=== PATIENT | male | born 1935 | race Caucasian/White ===

== ENCOUNTER 2022-07-18 15:56 | Inpatient (IN) | payer MEDICARE, BC ==
[2022-07-18] MEDS ORDERED: EPINEPHrine 1 MG/10 ML Abboject SYRINGE ONE (16:16)
[2022-07-18 16:25] LABS: Hemoglobin 13.9 g/dL (14.0-18.0); Mean Corpuscular HGB CONC 30.5 g/dL (32.0-36.0); Mean Corpuscular Hemoglobin 29.4 pg (27.0-31.0); Mean Corpuscular Volume 96.5 fl (78.0-98.0); Mean Platelet Volume 11.1 fL (7.4-10.4); Platelet Count 76 10x3/uL (130-400); RBC Distribution Width 18.1 % (11.5-14.5); Red Blood Cell (RBC) Count 4.73 mill/uL (4.70-6.10)
[2022-07-18 16:35] LABS: INR-International Normal Ratio 4.5; Prothrombin Time 45.2 sec (12.0-14.7)
[2022-07-18 16:41] LABS: ALT (SGPT) 15 U/L (8-55); AST (SGOT) 26 U/L (5-34); Albumin 3.1 g/dL (3.4-4.8); Alkaline Phosphatase 146 U/L (40-110); Anion Gap 15 mmol/L (10-20); BUN (Urea Nitrogen) 58 mg/dL (8.4-25.7); Bilirubin, Total 0.6 mg/dL (0.2-1.2); Calc. Creatinine Clearance 0 mL/min (70-130); Calcium 7.3 mg/dL (7.8-10.44); Carbon Dioxide 22 mmol/L (23-31); Chloride 101 mmol/L (98-107); Estimated GFR 16; Globulin 2.9 g/dL (2.4-3.5); Glucose 178 mg/dL (83-110); Potassium 5.6 mmol/L (3.5-5.1); Sodium 132 mmol/L (136-145)
[2022-07-18] MEDS ORDERED: NOREPINEPHRINE 8 MG/250 ML-D5W 250 ML ONE (16:49)
[2022-07-18 16:55] LABS: Anisocytosis SLIGHT = 6-15 cells (100X) (0-5/hpf); Band 12 % (5-11); Eosinophils 2 % (0-10); Large Platelets SLIGHT; Lymphocytes 4 % (21-51); MDiff Complete? YES; Monocytes 5 % (0-10); Neutrophil 77 % (42-75); Ovalocytes SLIGHT = 2-5 cells (100X) (0-1/hpf); Platelet Morphology Comment Appears Decreased
[2022-07-18] MEDS ORDERED: Vancomycin 1 GM/200 ML (FROZEN) BAG ONE (17:11)
[2022-07-18] MEDS ORDERED: Cefepime 2 GM VIAL ONE (17:11)
[2022-07-18] MEDS ORDERED: Calcium Chloride 1 GM/10 ML Abboject SYRINGE ONE ×3 (17:24→17:28)
[2022-07-18 17:25] LABS: Bacteria/HPF 2+ HPF (None Seen); Bilirubin Negative (Negative); Blood, Urine 1+ (Negative); Clarity Turbid (Clear); Glucose, Urine (Dipstick) Normal (Negative); Ketone, Urine Negative (Negative); Leukocyte 500 Leu/uL (Negative); Nitrite 2+ (Negative); Protein, Urine (Dipstick) 50 mg/dL (Neg-Trace); Specific Gravity, Urine 1.014 (1.002-1.036); Squamous Epithelial None Seen HPF (0-3); Urobilinogen Normal mg/dL (Less than 2); WBC/HPF Greater than 50 HPF (0-3); pH, Urine 5.5 (5.0-9.0)
[2022-07-18 17:26] LABS: Actual Bicarbonate (HCO3a) 23.6 mEq/L (22-28); Analyzer IN Cardio ER; Base Excess (BEa) -3.9 mEq/L (-2.0 to +3.0); Calcium, Ionized (arterial) 1.01 mmol/L (1.12-1.30); Carboxyhemoglobin (COHb) 0.7 gm% (0.0-3.0); Hemoglobin (Hb) 13.6 g/dL (14.0-18.0); O2 Tension (PaO2), arterial 78.5 mmHg (> 60.0); Potassium - ABG Lab 4.64 mmol/L (3.70-5.30); pH, Arterial 7.27 (7.35-7.45)
[2022-07-18 17:29] LABS: Puncture Site LRA
[2022-07-18] MEDS ORDERED: Naloxone HCl 2 mg/2 ml Syringe ONE (18:07)
[2022-07-18 19:07] LABS: SARS-CoV-2 NAA Rapid Test Not Detected (NotDetected)
[2022-07-18 19:13] LABS: Lactic Acid 1.7 mmol/L (0.5-2.2)
[2022-07-18] MEDS ORDERED: Ondansetron PF 4 MG/2 ML Vial IVP PRN (19:54)
[2022-07-18 20:14] VITALS: BMI 27.1
[2022-07-18 20:43] LABS: Anion Gap 12 mmol/L (10-20); BUN (Urea Nitrogen) 56 mg/dL (8.4-25.7); Calc. Creatinine Clearance 27 mL/min (70-130); Calcium 7.6 mg/dL (7.8-10.44); Carbon Dioxide 24 mmol/L (23-31); Chloride 102 mmol/L (98-107); Estimated GFR 18; Glucose 156 mg/dL (83-110); Potassium 4.8 mmol/L (3.5-5.1); Sodium 133 mmol/L (136-145)
[2022-07-18] MEDS: Senokot S 8.6-50 MG TAB PO SCH (21:32)
[2022-07-18] MEDS: Cefepime 1 GM in Sodium Chloride 0.9% 100 ML IVPB SCH (21:41)
[2022-07-18] MEDS ORDERED: Vancomycin 1 GM in Premix Bag 1 BAG IVPB SCH (22:00)
[2022-07-18] MEDS ORDERED: Vancomycin Dose by Levels Sliding Scale (Wt > 99) FS SCH (22:00)
[2022-07-19] MEDS ORDERED: Pramipexole Di-HCl 1 MG TAB PO SCH (01:00)
[2022-07-19] MEDS: Acetaminophen/Codeine 30-300mg Tablet PO PRN (02:00)
[2022-07-19 03:37] LABS: INR-International Normal Ratio 5.3; Prothrombin Time 50.8 sec (12.0-14.7)
[2022-07-19] MEDS: NOREPINEPHRINE 8 MG/250 ML-D5W 250 ML IVPB SCH ×2 (03:44→17:22)
[2022-07-19 03:47] LABS: Anion Gap 13 mmol/L (10-20); BUN (Urea Nitrogen) 57 mg/dL (8.4-25.7); Calc. Creatinine Clearance 28 mL/min (70-130); Calcium 7.7 mg/dL (7.8-10.44); Carbon Dioxide 23 mmol/L (23-31); Chloride 101 mmol/L (98-107); Estimated GFR 19; Glucose 93 mg/dL (83-110); Potassium 5.4 mmol/L (3.5-5.1); Sodium 132 mmol/L (136-145)
[2022-07-19 03:52] LABS: Band 16 % (5-11); Hemoglobin 14.2 g/dL (14.0-18.0); Lymphocytes 4 % (21-51); MDiff Complete? YES; Mean Corpuscular HGB CONC 30.1 g/dL (32.0-36.0); Mean Corpuscular Volume 96.3 fl (78.0-98.0); Neutrophil 80 % (42-75); Platelet Count 99 10x3/uL (130-400); Platelet Morphology Comment Appears Decreased; RBC Distribution Width 18.2 % (11.5-14.5); RBC Morphology Normal; White Blood Cell (WBC) Count 21.2 10x3/uL (4.8-10.8)
[2022-07-19] MEDS: Levothyroxine Sodium 50 MCG TAB PO SCH (05:34)
[2022-07-19] MEDS: Mometasone/Formoterol 200/5 60 PUFF INH SCH ×3 (07:23→18:50)
[2022-07-19] MEDS ORDERED: Lactated Ringer's 500 ML IV SCH (09:00)
[2022-07-19] MEDS ORDERED: Hydrocortisone Sod Succ/PF 100 mg/2 ml Vial IVP SCH (09:00)
[2022-07-19] MEDS ORDERED: Albumin 25% 25 GM/100 ML BOT IVPB SCH (09:00)
[2022-07-19 09:11] LABS: Actual Bicarbonate (HCO3v) 27 mEq/L (22-28); Base Excess -1.1 mEq/L (-2.0 to +3.0); Calcium, Ionized (venous) 1.07 mmol/L (1.16-1.32); Chloride (VBG) 101 mmol/L (98-106); Hemoglobin (Hb) 15.2 g/dL (12.6-17.4); Sodium 132.8 mmol/L (133-146); pH (venous) 7.29 (7.32-7.43)
[2022-07-19] MEDS: Pantoprazole 40 MG VIAL IVP SCH (09:30)
[2022-07-19] MEDS ORDERED: Calcium Gluc 4.6 MEQ/10 ML (100 MG/ML) SLOW IVP SCH (09:34)
[2022-07-19] MEDS ORDERED: Calcium Chloride 1 GM/10 ML Abboject SYRINGE ONE (09:40)
[2022-07-19] MEDS ORDERED: Insulin Regular 300 UNITS/3 ML VIAL ONE (09:40)
[2022-07-19] MEDS ORDERED: Insulin Regular 300 UNITS/3 ML VIAL IVP SCH (10:00)
[2022-07-19] MEDS ORDERED: Dextrose 50% Abboject 50 ML SYRINGE SLOW IVP SCH (10:15)
[2022-07-19] MEDS: Senokot S 8.6-50 MG TAB PO SCH ×2 (10:34→21:35)
[2022-07-19] MEDS: Rosuvastatin 5 MG TAB PO SCH (10:34)
[2022-07-19] MEDS: Loratadine 10 MG TAB PO SCH (10:34)
[2022-07-19] MEDS: Polyethylene Glycol 3350 17 GM Packet PO SCH (10:34)
[2022-07-19] MEDS: Hydrocortisone Sod Succ/PF 100 mg/2 ml Vial IVP SCH ×3 (11:44→22:57)
[2022-07-19] MEDS: Vasopressin 20 UNIT, Admixture Fee 1 EACH in Sodium Chloride 0.9% 50 ML IV SCH ×2 (11:45→17:32)
[2022-07-19 12:32] LABS: Anion Gap 13 mmol/L (10-20); BUN (Urea Nitrogen) 57 mg/dL (8.4-25.7); Calc. Creatinine Clearance 28 mL/min (70-130); Calcium 8.1 mg/dL (7.8-10.44); Carbon Dioxide 23 mmol/L (23-31); Chloride 102 mmol/L (98-107); Estimated GFR 18; Glucose 79 mg/dL (83-110); Potassium 5.4 mmol/L (3.5-5.1); Sodium 133 mmol/L (136-145)
[2022-07-19 14:30] LABS: Anion Gap 13 mmol/L (10-20); BUN (Urea Nitrogen) 53 mg/dL (8.4-25.7); Calc. Creatinine Clearance 28 mL/min (70-130); Carbon Dioxide 24 mmol/L (23-31); Chloride 101 mmol/L (98-107); Estimated GFR 19; Glucose 89 mg/dL (83-110); Sodium 132 mmol/L (136-145)
[2022-07-19 14:35] LABS: Actual Bicarbonate (HCO3v) 26 mEq/L (22-28); Base Excess -1.8 mEq/L (-2.0 to +3.0); Calcium, Ionized (venous) 1.12 mmol/L (1.16-1.32); Chloride (VBG) 101 mmol/L (98-106); Hemoglobin (Hb) 14.9 g/dL (12.6-17.4); Potassium (VBG) 5.85 mmol/L (3.70-5.30); Sodium 132.1 mmol/L (133-146)
[2022-07-19] MEDS: Cefepime 1 GM in Sodium Chloride 0.9% 100 ML IVPB SCH (16:45)
[2022-07-19] MEDS ORDERED: LOKELMA 10 GM PACKET PO SCH (17:45)
[2022-07-19 21:28] LABS: Vancomycin, Random 12.7 ug/mL (See Comment)
[2022-07-19] MEDS: Pramipexole Di-HCl 1 MG TAB PO SCH (21:35)
[2022-07-19] MEDS: LOKELMA 10 GM PACKET PO SCH (21:36)
[2022-07-19] MEDS ORDERED: Vancomycin 1 GM in Premix Bag 1 BAG IVPB SCH (22:00)
[2022-07-20] MEDS: Vasopressin 20 UNIT, Admixture Fee 1 EACH in Sodium Chloride 0.9% 50 ML IV SCH (00:37)
[2022-07-20 05:09] LABS: INR-International Normal Ratio 5.1; Prothrombin Time 49.5 sec (12.0-14.7)
[2022-07-20 05:36] LABS: Anion Gap 16 mmol/L (10-20); BUN (Urea Nitrogen) 56 mg/dL (8.4-25.7); Calc. Creatinine Clearance 29 mL/min (70-130); Carbon Dioxide 22 mmol/L (23-31); Chloride 99 mmol/L (98-107); Potassium 5.7 mmol/L (3.5-5.1); Sodium 131 mmol/L (136-145)
[2022-07-20 05:37] LABS: Calcium 8.2 mg/dL (7.8-10.44); Estimated GFR 20; Glucose 186 mg/dL (83-110)
[2022-07-20] MEDS: Levothyroxine Sodium 50 MCG TAB PO SCH (05:40)
[2022-07-20] MEDS: Hydrocortisone Sod Succ/PF 100 mg/2 ml Vial IVP SCH ×2 (05:40→19:32)
[2022-07-20 06:52] LABS: Anisocytosis SLIGHT = 6-15 cells (100X) (0-5/hpf); Band 14 % (5-11); Hemoglobin 13.3 g/dL (14.0-18.0); Hypochromia SLIGHT = 6-15 cells (100X) (0-5/hpf); MDiff Complete? YES; Mean Corpuscular HGB CONC 30.8 g/dL (32.0-36.0); Mean Corpuscular Hemoglobin 29.5 pg (27.0-31.0); Mean Platelet Volume 11.2 fL (7.4-10.4); Monocytes 3 % (0-10); Neutrophil 83 % (42-75); Platelet Count 89 10x3/uL (130-400); Platelet Morphology Comment Appears Decreased; Polychromasia SLIGHT = 2-3 cells (100X) (0-2/hpf); RBC Distribution Width 18.1 % (11.5-14.5); Red Blood Cell (RBC) Count 4.51 mill/uL (4.70-6.10); White Blood Cell (WBC) Count 23.5 10x3/uL (4.8-10.8)
[2022-07-20] MEDS: Mometasone/Formoterol 200/5 60 PUFF INH SCH ×2 (08:05→18:32)
[2022-07-20] MEDS: Loratadine 10 MG TAB PO SCH (09:06)
[2022-07-20] MEDS: Polyethylene Glycol 3350 17 GM Packet PO SCH (09:06)
[2022-07-20] MEDS: Rosuvastatin 5 MG TAB PO SCH (09:06)
[2022-07-20] MEDS: Pantoprazole 40 MG VIAL IVP SCH (09:07)
[2022-07-20] MEDS: Senokot S 8.6-50 MG TAB PO SCH ×2 (09:07→20:13)
[2022-07-20] MEDS: LOKELMA 10 GM PACKET PO SCH (09:07)
[2022-07-20] MEDS ORDERED: Sodium Chloride 0.9% 500 ML IV SCH (09:15)
[2022-07-20] MEDS ORDERED: Hydrocortisone Sod Succ/PF 100 mg/2 ml Vial IVP SCH (09:15)
[2022-07-20] MEDS: Bisacodyl 10 MG SUPP PR PRN ×2 (15:54→22:06)
[2022-07-20] MEDS: Cefepime 1 GM in Sodium Chloride 0.9% 100 ML IVPB SCH (16:21)
[2022-07-20 18:28] LABS: Anion Gap 13 mmol/L (10-20); BUN (Urea Nitrogen) 59 mg/dL (8.4-25.7); Calc. Creatinine Clearance 34 mL/min (70-130); Calcium 7.9 mg/dL (7.8-10.44); Carbon Dioxide 25 mmol/L (23-31); Chloride 101 mmol/L (98-107); Estimated GFR 24; Glucose 127 mg/dL (83-110); Potassium 4.6 mmol/L (3.5-5.1); Sodium 134 mmol/L (136-145)
[2022-07-20] MEDS: Pramipexole Di-HCl 1 MG TAB PO SCH (20:12)
[2022-07-21] MEDS: Hydrocortisone Sod Succ/PF 100 mg/2 ml Vial IVP SCH (03:36)
[2022-07-21] MEDS: Levothyroxine Sodium 50 MCG TAB PO SCH (05:18)
[2022-07-21 05:29] LABS: INR-International Normal Ratio 4.7; Prothrombin Time 46.7 sec (12.0-14.7)
[2022-07-21 05:40] LABS: Band 34 % (5-11); Hemoglobin 12.9 g/dL (14.0-18.0); Hypochromia SLIGHT = 6-15 cells (100X) (0-5/hpf); Lymphocytes 3 % (21-51); MDiff Complete? YES; Mean Corpuscular HGB CONC 30.1 g/dL (32.0-36.0); Mean Corpuscular Hemoglobin 28.8 pg (27.0-31.0); Mean Corpuscular Volume 95.7 fl (78.0-98.0); Mean Platelet Volume 11.6 fL (7.4-10.4); Monocytes 3 % (0-10); Neutrophil 60 % (42-75); Platelet Count 87 10x3/uL (130-400); Platelet Morphology Comment Appears Decreased; RBC Distribution Width 18.4 % (11.5-14.5); Red Blood Cell (RBC) Count 4.47 mill/uL (4.70-6.10); White Blood Cell (WBC) Count 23.6 10x3/uL (4.8-10.8)
[2022-07-21 05:43] LABS: Anion Gap 15 mmol/L (10-20); BUN (Urea Nitrogen) 62 mg/dL (8.4-25.7); Calc. Creatinine Clearance 36 mL/min (70-130); Calcium 8.2 mg/dL (7.8-10.44); Carbon Dioxide 23 mmol/L (23-31); Chloride 102 mmol/L (98-107); Estimated GFR 25; Glucose 105 mg/dL (83-110); Potassium 4.5 mmol/L (3.5-5.1); Sodium 135 mmol/L (136-145)
[2022-07-21] MEDS: Mometasone/Formoterol 200/5 60 PUFF INH SCH ×2 (07:22→19:13)
[2022-07-21] MEDS: Cefepime 1 GM in Sodium Chloride 0.9% 100 ML IVPB SCH ×2 (08:59→20:47)
[2022-07-21] MEDS: Loratadine 10 MG TAB PO SCH (09:00)
[2022-07-21] MEDS: Rosuvastatin 5 MG TAB PO SCH (09:00)
[2022-07-21] MEDS ORDERED: FLU VACC QS2022-23(65YR UP)/PF 240 MCG/0.7 ML SYRINGE IM ONE (09:00)
[2022-07-21] MEDS: Polyethylene Glycol 3350 17 GM Packet PO SCH (09:00)
[2022-07-21] MEDS: Senokot S 8.6-50 MG TAB PO SCH ×2 (09:00→20:46)
[2022-07-21] MEDS: traZODone HCl 50 MG TAB PO PRN (20:46)
[2022-07-21] MEDS: Pramipexole Di-HCl 1 MG TAB PO SCH (20:46)
[2022-07-22] MEDS: Levothyroxine Sodium 50 MCG TAB PO SCH (06:22)
[2022-07-22] MEDS: Senokot S 8.6-50 MG TAB PO SCH ×2 (07:51→19:56)
[2022-07-22] MEDS: Polyethylene Glycol 3350 17 GM Packet PO SCH (07:51)
[2022-07-22] MEDS: predniSONE 20 MG TAB PO SCH (07:52)
[2022-07-22] MEDS: Loratadine 10 MG TAB PO SCH (07:52)
[2022-07-22 08:00] LABS: #Eosinphils 0.3 thou/uL (0.0-0.7); #Lymphocytes 1.6 thou/uL (1.20-3.40); #Monocytes 0.8 thou/uL (0.11-0.59); #Neutrophils 14.6 thou/uL (1.40-6.50); %Basophils 0.2 % (0.0-1.0); %Eosinophils 1.9 % (0.0-10.0); %Monocytes 4.4 % (0.0-10.0); %Neutrophils 84.5 % (42.0-75.0); Hemoglobin 13.1 g/dL (14.0-18.0); Mean Corpuscular HGB CONC 29.5 g/dL (32.0-36.0); Mean Corpuscular Hemoglobin 28.5 pg (27.0-31.0); Mean Corpuscular Volume 96.6 fl (78.0-98.0); Mean Platelet Volume 11.8 fL (7.4-10.4); Platelet Count 88 10x3/uL (130-400); RBC Distribution Width 18.6 % (11.5-14.5); Red Blood Cell (RBC) Count 4.58 mill/uL (4.70-6.10); White Blood Cell (WBC) Count 17.3 10x3/uL (4.8-10.8)
[2022-07-22 08:19] LABS: ALT (SGPT) 19 U/L (8-55); AST (SGOT) 30 U/L (5-34); Alkaline Phosphatase 113 U/L (40-110); Anion Gap 11 mmol/L (10-20); BUN (Urea Nitrogen) 53 mg/dL (8.4-25.7); Bilirubin, Total 0.7 mg/dL (0.2-1.2); Calc. Creatinine Clearance 44 mL/min (70-130); Calcium 8.2 mg/dL (7.8-10.44); Carbon Dioxide 24 mmol/L (23-31); Chloride 106 mmol/L (98-107); Estimated GFR 32; Globulin 2.7 g/dL (2.4-3.5); Glucose 67 mg/dL (83-110); Potassium 4.3 mmol/L (3.5-5.1); Protein, Total 5.7 g/dL (5.8-8.1); Sodium 137 mmol/L (136-145)
[2022-07-22] MEDS: Mometasone/Formoterol 200/5 60 PUFF INH SCH ×2 (08:39→19:10)
[2022-07-22] MEDS: Cefepime 1 GM in Sodium Chloride 0.9% 100 ML IVPB SCH (08:40)
[2022-07-22] MEDS: Rosuvastatin 5 MG TAB PO SCH (08:40)
[2022-07-22 09:19] LABS: Burr Cells SLIGHT = 2-5 cells (100X) (0-1/hpf); MDiff Complete? YES; Platelet Morphology Comment Appears Decreased
[2022-07-22 09:34] LABS: INR-International Normal Ratio 3.5; Prothrombin Time 36.3 sec (12.0-14.7)
[2022-07-22] MEDS: Acetaminophen/Codeine 30-300mg Tablet PO PRN (12:47)
[2022-07-22] MEDS: Pramipexole Di-HCl 1 MG TAB PO SCH (19:56)
[2022-07-23] MEDS: traZODone HCl 50 MG TAB PO PRN ×2 (03:23→20:25)
[2022-07-23] MEDS: Acetaminophen 325 MG TAB PO PRN (03:25)
[2022-07-23] MEDS: Levothyroxine Sodium 50 MCG TAB PO SCH (05:33)
[2022-07-23 06:57] LABS: #Lymphocytes 0.7 thou/uL (1.20-3.40); #Monocytes 0.4 thou/uL (0.11-0.59); %Eosinophils 0.1 % (0.0-10.0); %Lymphocytes 6.6 % (21.0-51.0); %Monocytes 3.8 % (0.0-10.0); %Neutrophils 89.6 % (42.0-75.0); Hemoglobin 13.2 g/dL (14.0-18.0); Mean Corpuscular HGB CONC 30.1 g/dL (32.0-36.0); Mean Corpuscular Hemoglobin 28.9 pg (27.0-31.0); Mean Corpuscular Volume 96.1 fl (78.0-98.0); Mean Platelet Volume 11.5 fL (7.4-10.4); Platelet Count 90 10x3/uL (130-400); RBC Distribution Width 18.4 % (11.5-14.5); Red Blood Cell (RBC) Count 4.56 mill/uL (4.70-6.10)
[2022-07-23 07:09] LABS: ALT (SGPT) 21 U/L (8-55); AST (SGOT) 28 U/L (5-34); Alkaline Phosphatase 113 U/L (40-110); Anion Gap 11 mmol/L (10-20); BUN (Urea Nitrogen) 49 mg/dL (8.4-25.7); Bilirubin, Total 0.7 mg/dL (0.2-1.2); Calc. Creatinine Clearance 47 mL/min (70-130); Calcium 8.2 mg/dL (7.8-10.44); Carbon Dioxide 25 mmol/L (23-31); Chloride 106 mmol/L (98-107); Estimated GFR 35; Globulin 2.7 g/dL (2.4-3.5); Glucose 91 mg/dL (83-110); Potassium 4.6 mmol/L (3.5-5.1); Protein, Total 5.7 g/dL (5.8-8.1); Sodium 137 mmol/L (136-145)
[2022-07-23] MEDS: Polyethylene Glycol 3350 17 GM Packet PO SCH (08:01)
[2022-07-23] MEDS: predniSONE 20 MG TAB PO SCH (08:01)
[2022-07-23] MEDS: Senokot S 8.6-50 MG TAB PO SCH ×2 (08:01→20:23)
[2022-07-23] MEDS: Loratadine 10 MG TAB PO SCH (08:01)
[2022-07-23] MEDS: Rosuvastatin 5 MG TAB PO SCH (08:01)
[2022-07-23] MEDS: Mometasone/Formoterol 200/5 60 PUFF INH SCH ×2 (08:09→20:49)
[2022-07-23] MEDS: Pramipexole Di-HCl 1 MG TAB PO SCH (20:23)
[2022-07-23] MEDS: Acetaminophen/Codeine 30-300mg Tablet PO PRN (20:24)
[2022-07-24] MEDS: Levothyroxine Sodium 50 MCG TAB PO SCH (05:35)
[2022-07-24] MEDS: Mometasone/Formoterol 200/5 60 PUFF INH SCH ×2 (07:36→19:09)
[2022-07-24] MEDS: Rosuvastatin 5 MG TAB PO SCH (08:36)
[2022-07-24] MEDS: Senokot S 8.6-50 MG TAB PO SCH ×2 (08:36→21:05)
[2022-07-24] MEDS: predniSONE 20 MG TAB PO SCH (08:36)
[2022-07-24] MEDS: Polyethylene Glycol 3350 17 GM Packet PO SCH (08:36)
[2022-07-24] MEDS: Loratadine 10 MG TAB PO SCH (08:36)
[2022-07-24 09:53] LABS: #Basophils 0.1 thou/uL (0.0-0.2); #Eosinphils 0.2 thou/uL (0.0-0.7); #Lymphocytes 1.1 thou/uL (1.20-3.40); #Monocytes 0.7 thou/uL (0.11-0.59); #Neutrophils 7.1 thou/uL (1.40-6.50); %Basophils 0.6 % (0.0-1.0); %Lymphocytes 11.5 % (21.0-51.0); %Monocytes 7.7 % (0.0-10.0); %Neutrophils 78.3 % (42.0-75.0); Hemoglobin 13.6 g/dL (14.0-18.0); Mean Corpuscular HGB CONC 30.8 g/dL (32.0-36.0); Mean Corpuscular Hemoglobin 29.8 pg (27.0-31.0); Mean Corpuscular Volume 96.8 fl (78.0-98.0); Mean Platelet Volume 10.8 fL (7.4-10.4); Platelet Count 96 10x3/uL (130-400); Red Blood Cell (RBC) Count 4.54 mill/uL (4.70-6.10); White Blood Cell (WBC) Count 9.1 10x3/uL (4.8-10.8)
[2022-07-24 10:11] LABS: ALT (SGPT) 21 U/L (8-55); AST (SGOT) 28 U/L (5-34); Albumin 3.1 g/dL (3.4-4.8); Alkaline Phosphatase 119 U/L (40-110); Anion Gap 10 mmol/L (10-20); BUN (Urea Nitrogen) 47 mg/dL (8.4-25.7); Bilirubin, Total 0.9 mg/dL (0.2-1.2); Calc. Creatinine Clearance 51 mL/min (70-130); Calcium 8.4 mg/dL (7.8-10.44); Carbon Dioxide 27 mmol/L (23-31); Chloride 107 mmol/L (98-107); Estimated GFR 39; Globulin 2.7 g/dL (2.4-3.5); Glucose 82 mg/dL (83-110); Potassium 4.7 mmol/L (3.5-5.1); Protein, Total 5.8 g/dL (5.8-8.1); Sodium 139 mmol/L (136-145)
[2022-07-24] MEDS: Warfarin Sodium 2.5 MG TAB PO SCH (16:46)
[2022-07-24] MEDS: Pramipexole Di-HCl 1 MG TAB PO SCH (21:05)
[2022-07-24] MEDS: Acetaminophen 325 MG TAB PO PRN (21:05)
[2022-07-24] MEDS: traZODone HCl 50 MG TAB PO PRN (21:06)
[2022-07-25] MEDS: Levothyroxine Sodium 50 MCG TAB PO SCH (05:10)
[2022-07-25] MEDS: Mometasone/Formoterol 200/5 60 PUFF INH SCH ×2 (06:49→18:50)
[2022-07-25 08:02] LABS: #Eosinphils 0.3 thou/uL (0.0-0.7); #Lymphocytes 1.1 thou/uL (1.20-3.40); #Monocytes 0.8 thou/uL (0.11-0.59); #Neutrophils 7.1 thou/uL (1.40-6.50); %Basophils 0.1 % (0.0-1.0); %Eosinophils 2.9 % (0.0-10.0); %Lymphocytes 11.3 % (21.0-51.0); %Monocytes 8.9 % (0.0-10.0); %Neutrophils 76.7 % (42.0-75.0); Hemoglobin 13.7 g/dL (14.0-18.0); Mean Corpuscular HGB CONC 30.3 g/dL (32.0-36.0); Mean Corpuscular Hemoglobin 29.1 pg (27.0-31.0); Mean Corpuscular Volume 96.1 fl (78.0-98.0); Mean Platelet Volume 11.1 fL (7.4-10.4); Platelet Count 95 10x3/uL (130-400); RBC Distribution Width 18.2 % (11.5-14.5); Red Blood Cell (RBC) Count 4.69 mill/uL (4.70-6.10); White Blood Cell (WBC) Count 9.3 10x3/uL (4.8-10.8)
[2022-07-25 08:07] LABS: INR-International Normal Ratio 1.8; Prothrombin Time 21.2 sec (12.0-14.7)
[2022-07-25 08:08] LABS: PTT 50.1 sec (22.9-36.1)
[2022-07-25] MEDS: Senokot S 8.6-50 MG TAB PO SCH ×2 (09:09→19:48)
[2022-07-25] MEDS: Polyethylene Glycol 3350 17 GM Packet PO SCH (09:09)
[2022-07-25] MEDS: Rosuvastatin 5 MG TAB PO SCH (09:09)
[2022-07-25] MEDS: predniSONE 20 MG TAB PO SCH (09:09)
[2022-07-25] MEDS: Loratadine 10 MG TAB PO SCH (09:09)
[2022-07-25 13:49] LABS: ALT (SGPT) 27 U/L (8-55); AST (SGOT) 40 U/L (5-34); Albumin 3.2 g/dL (3.4-4.8); Alkaline Phosphatase 107 U/L (40-110); Anion Gap 11 mmol/L (10-20); BUN (Urea Nitrogen) 45 mg/dL (8.4-25.7); Bilirubin, Total 0.8 mg/dL (0.2-1.2); Calc. Creatinine Clearance 58 mL/min (70-130); Calcium 8.4 mg/dL (7.8-10.44); Carbon Dioxide 29 mmol/L (23-31); Chloride 105 mmol/L (98-107); Estimated GFR 45; Globulin 2.6 g/dL (2.4-3.5); Glucose 98 mg/dL (83-110); Protein, Total 5.8 g/dL (5.8-8.1); Sodium 140 mmol/L (136-145)
[2022-07-25] MEDS: Warfarin Sodium 2.5 MG TAB PO SCH (18:16)
[2022-07-25] MEDS: Pramipexole Di-HCl 1 MG TAB PO SCH (19:48)
[2022-07-25] MEDS: Acetaminophen 325 MG TAB PO PRN (19:50)
[2022-07-25] MEDS: traZODone HCl 50 MG TAB PO PRN (23:42)
[2022-07-26] MEDS: Levothyroxine Sodium 50 MCG TAB PO SCH (05:09)
[2022-07-26] MEDS: Mometasone/Formoterol 200/5 60 PUFF INH SCH (07:05)
[2022-07-26] MEDS: Rosuvastatin 5 MG TAB PO SCH (09:38)
[2022-07-26] MEDS: Senokot S 8.6-50 MG TAB PO SCH (09:38)
[2022-07-26] MEDS: Loratadine 10 MG TAB PO SCH (09:38)
[2022-07-26] MEDS: Polyethylene Glycol 3350 17 GM Packet PO SCH (09:38)
[2022-07-26 09:46] LABS: INR-International Normal Ratio 1.9; Prothrombin Time 22.4 sec (12.0-14.7)
[2022-07-26 09:47] LABS: Anion Gap 13 mmol/L (10-20); BUN (Urea Nitrogen) 36 mg/dL (8.4-25.7); Calc. Creatinine Clearance 65 mL/min (70-130); Calcium 8.6 mg/dL (7.8-10.44); Carbon Dioxide 23 mmol/L (23-31); Chloride 104 mmol/L (98-107); Estimated GFR 51; Glucose 89 mg/dL (83-110); PTT 48.7 sec (22.9-36.1); Sodium 135 mmol/L (136-145)
[2022-07-26 14:45] VITALS: BP 134/80; TEMP 98.5
== END 2022-07-26 16:00 | disposition home health service (06) | DRG 871 ==
LOC: ERS 15:56 → CCU 17:55 → T4-B 07-22 10:24
PROVIDERS: ADMIT Internal Medicine; ATTEND Family Medicine
PROC: 3E03329 Introduction of Other Anti-infective into Peripheral Vein, Percutaneous Approach (ICD-10-PCS; principal; 2022-07-18)
PROC: 3E033XZ Introduction of Vasopressor into Peripheral Vein, Percutaneous Approach (ICD-10-PCS; 2022-07-18)
PROC: 06HY33Z Insertion of Infusion Device into Lower Vein, Percutaneous Approach (ICD-10-PCS; 2022-07-18)
PROC: 0T9B70Z Drainage of Bladder with Drainage Device, Via Natural or Artificial Opening (ICD-10-PCS; 2022-07-18)
PROC: 5A09357 Assistance with Respiratory Ventilation, Less than 24 Consecutive Hours, Continuous Positive Airway Pressure (ICD-10-PCS; 2022-07-19)
PROC: 30233J1 Transfusion of Nonautologous Serum Albumin into Peripheral Vein, Percutaneous Approach (ICD-10-PCS; 2022-07-19)
DX: A41.59 Other Gram-negative sepsis (principal); G93.41 Metabolic encephalopathy; J96.21 Acute and chronic respiratory failure with hypoxia; R65.21 Severe sepsis with septic shock; J96.22 Acute and chronic respiratory failure with hypercapnia; I13.0 Hypertensive heart and chronic kidney disease with heart failure and stage 1 through stage 4 chronic kidney disease, or unspecified chronic kidney disease; L03.115 Cellulitis of right lower limb; N17.9 Acute kidney failure, unspecified; N18.4 Chronic kidney disease, stage 4 (severe); N30.00 Acute cystitis without hematuria; E87.1 Hypo-osmolality and hyponatremia; I48.11 Longstanding persistent atrial fibrillation; I48.92 Unspecified atrial flutter; Z66 Do not resuscitate; E78.5 Hyperlipidemia, unspecified; I25.10 Atherosclerotic heart disease of native coronary artery without angina pectoris; J44.9 Chronic obstructive pulmonary disease, unspecified; G47.33 Obstructive sleep apnea (adult) (pediatric); G25.81 Restless legs syndrome; E87.5 Hyperkalemia; R79.1 Abnormal coagulation profile; E03.9 Hypothyroidism, unspecified; D69.6 Thrombocytopenia, unspecified; E83.51 Hypocalcemia; E88.09 Other disorders of plasma-protein metabolism, not elsewhere classified; D63.1 Anemia in chronic kidney disease; K59.00 Constipation, unspecified; M19.90 Unspecified osteoarthritis, unspecified site; Z20.822 Contact with and (suspected) exposure to COVID-19; K21.9 Gastro-esophageal reflux disease without esophagitis; Z79.01 Long term (current) use of anticoagulants; Z79.899 Other long term (current) drug therapy; Z98.890 Other specified postprocedural states; Z95.5 Presence of coronary angioplasty implant and graft; Z89.421 Acquired absence of other right toe(s); Z82.49 Family history of ischemic heart disease and other diseases of the circulatory system; Z95.0 Presence of cardiac pacemaker; Z91.041 Radiographic dye allergy status; Z79.02 Long term (current) use of antithrombotics/antiplatelets; Z91.198 Patient's noncompliance with other medical treatment and regimen for other reason; Z99.3 Dependence on wheelchair
CPT/HCPCS: 36415; 36556; 36600; 51702; 71045; 74176; 80048; 80053; 80202; 81003; 81015; 82805; 83605; 83880; 84484; 85025; 85610; 85730; 87040; 87077; 87086; 87186; 87811; 93005; 94640; 94660; 94760; 96361; 96365; 96366; 96368; 96374; 96375; 97139; 99292; C9113; J0171; J0610; J0692; J1720; J1815; J2310; J3370; J3370-JW; J3490; J7030; J7512; J7620; J7999; P9047